=== PATIENT | female | born 1985 | race Caucasian/White ===

== ENCOUNTER 2016-05-07 15:47 | Emergency (ER) | payer OTHER ==
[~2016-05-07] VITALS: Ht 172.7 cm; Wt 89.0 kg
[~2016-05-07 15:47] MED LIST: IBUP600 PO; PREN0.01 PO
[2016-05-07 15:48] VITALS: BP 136/96; PULSE 77; RESP 17; TEMP 98.2; O2SAT 100
[2016-05-07] MEDS ORDERED: ACETAMINOPHEN 500 MG CPLT PO ONE (16:15)
[2016-05-07] MEDS ORDERED: predniSONE 20 MG TAB PO ONE (16:15)
[2016-05-07] MEDS ORDERED: KETOROLAC TROMETHAMINE 60 MG/2 ML (IM) VIAL IM ONE (16:15)
--- NOTE | 2016-05-07 17:34 | PD ---
HPI Chief Complaint: Back/ Neck Pain or Injury Time Seen by Provider: 16:30 Travel History International Travel<30 days: No Contact w/Intl Traveler<30days: No Traveled to known affect area: No History of Present Illness HPI 30-year-old female coming in with sudden onset right lower back pain. Patient states she was picking up her son when she had sudden onset pain and spasm which got progressively worse through the day today. Patient states her pain currently 8/10. It is worse with movement and trying to pain only. Patient similar episodes in the past. Patient denies pain down into the right buttock or leg. She denies urinary or bowel problems. It feels like a muscle spasm. Patient is currently breast-feeding her 8-month-old son. She denies any other symptoms. She has no known drug allergies. PFSH Past Medical History Diminished Hearing: No ?: Not LMP: MID-APRIL 2016 : 1 Para: 2 Social History Alcohol Use: No Tobacco Use: No (never) Substance Use: No Allergies-Medications (Allergen,Severity, Reaction): Coded Allergies: No Known Allergies (Verified , 05/07/16) Reported Meds & Prescriptions Reported Meds & Active Scripts Active Review of Systems Except as stated in HPI: all other systems reviewed are Neg General / Constitutional: No: Fever Eyes: No: Visual changes HENT: No: Headaches Cardiovascular: No: Chest Pain or Discomfort Respiratory: No: Shortness of Breath Gastrointestinal: No: Abdominal Pain Genitourinary: No: Dysuria Musculoskeletal: No: Pain Skin: No Rash Neurologic: No: Weakness Psychiatric: No: Depression Endocrine: No: Polydipsia Hematologic/Lymphatic: No: Easy Bruising Physical Exam Narrative GENERAL: Patient appears in moderate distress. SKIN: Warm and dry. Normal color. Normal turgor. HEAD: Atraumatic. Normocephalic. EYES: Pupils equal and round. No scleral icterus. No injection or drainage. ENT: No nasal bleeding or discharge. Mucous membranes pink and moist. NECK: Trachea midline. No JVD. Supple nontender. CARDIOVASCULAR: Regular rate and rhythm. No murmurs gallops or rubs. RESPIRATORY: No accessory muscle use. Clear to auscultation. Breath sounds equal bilaterally. GASTROINTESTINAL: Abdomen soft, non-tender, nondistended. Hepatic and splenic margins not palpable. No CVA tenderness. MUSCULOSKELETAL: Extremities without clubbing, cyanosis, or edema. No obvious deformities. Patient is soft tissue tenderness in the right lower thoracic and lumbar paraspinous region. There is palpable spasm in this time. There is no pain in the sciatic notch. Patient has negative radicular signs at this time. NEUROLOGICAL: Awake and alert. No obvious cranial nerve deficits. Motor grossly within normal limits. Five out of 5 muscle strength in the arms and legs strength is limited by pain only. Patient has normal plantar and dorsiflexion. Normal speech. PSYCHIATRIC: Appropriate mood and affect; insight and judgment normal. Data Data Last Documented VS Vital Signs Date Time Temp Pulse Resp B/P Pulse Ox O2 Delivery O2 Flow Rate FiO2 05/07/16 15:48 98.2 77 17 136/96 100 Orders Ketorolac Inj (Toradol Inj) (05/07/16 16:15) Prednisone (Deltasone) (05/07/16 16:15) Acetaminophen (Tylenol) (05/07/16 16:15) Ct Lumb Spine W/O Contrast (05/07/16 18:00) Complete Blood Count With Diff (05/07/16 18:00) Comprehensive Metabolic Panel (05/07/16 18:00) Lipase (05/07/16 18:00) Urinalysis - C+S If Indicated (05/07/16 18:00) Iv Access Insert/Monitor (05/07/16 18:00) Ecg Monitoring (05/07/16 18:00) Oximetry (05/07/16 18:00) Ondansetron Inj (Zofran Inj) (05/07/16 18:00) Sodium Chloride 0.9% Flush (Ns Flush) (05/07/16 18:00) Morphine Inj (Morphine Inj) (05/07/16 18:00) Ed Urine Pregnancytest Poc (05/07/16 18:00) MDM Medical Decision Making Medical Screen Exam Complete: Yes Emergency Medical Condition: Yes Differential Diagnosis Lumbar back strain. Muscle spasm. Sciatica. Narrative Course Patient is medically stable at time of exam. Radiographic imaging is not felt to be necessary based on the patient's history. Patient was given 60 mg prednisone by mouth as well as 60 mg Toradol IM. Muscle relaxants or narcotics were not given to the patient due to her breast- feeding status. Patient was kept in the emergency department for approximate hour with mild improvement. Patient is unable to ambulate due to her pain. Patient is discussed with Dr. Tello who recommends lab work, IV morphine, and CT scan of the lumbar spine to rule out acute cause of her pain. Labs ordered including CBC, CMP, lipase, urinalysis, urine . CT of the lumbar spine is ordered without IV contrast. Patient is given 5 mg IV morphine in 4 mg Zofran IV. Pending these labs and CT scan the patient may be admitted for is ration for intractable pain versus other etiology pending tests. Patient was moved to [place] [id number], and patient was discussed with Jim LOZANO. He will disposition the patient ending lab results. Condition: Stable Scott Alegria May 07, 2016 17:34
[2016-05-07] MEDS ORDERED: IBUP-232 PO (17:39)
[2016-05-07] MEDS ORDERED: BACT800T5 PO (17:39)
[2016-05-07] MEDS ORDERED: SODIUM CHLORIDE 0.9% FLUSH 5 ML FLUSH IVF PRN (18:00)
[2016-05-07] MEDS ORDERED: ONDANSETRON HCL 4 MG/2 ML VIAL IVP ONE (18:00)
[2016-05-07] MEDS ORDERED: MORPHINE SULFATE 8 MG/ML INJ IV PUSH ONE (18:00)
[2016-05-07 19:12] LABS: AUTOMATED NEUTROPHIL # 8.2 TH/MM3 (1.8-7.7); BASOPHIL % 0.3 % (0.0-2.0); EOSINOPHIL % 0.2 % (0.0-4.0); HEMATOCRIT 41.8 % (35.0-46.0); HEMO FLAGS DIFF FINAL; LYMPH % 10.6 % (9.0-44.0); MEAN CELL VOLUME 87.8 FL (80.0-100.0); MEAN CORPUSCULAR HEMOGLOBIN 31.2 PG (27.0-34.0); MEAN CORPUSCULAR HGB CONC 35.5 % (32.0-36.0); MONO % 1.9 % (0.0-8.0); PLATELET COUNT 213 TH/MM3 (150-450); RED BLOOD COUNT 4.76 MIL/MM3 (4.00-5.30); RED CELL DISTRIBUTION WIDTH 12.2 % (11.6-17.2); WHITE BLOOD COUNT 9.4 TH/MM3 (4.0-11.0)
[2016-05-07 19:28] LABS: BLOOD, URINE NEG (NEG); COMMENT (UR) CULT NOT INDICATED; CULTURE IF INDICATED CULT NOT INDICATED; GLUCOSE,URINE NEG (NEG); KETONE, URINE NEG (NEG); MUCUS URINE FEW /lpf (OCC); NITRITE,URINE NEG (NEG); SQUAMOUS EPITHELIAL CELL URINE 2 /hpf (0-5); URINE COLOR YELLOW (YELLW/STRAW)
--- NOTE | 2016-05-07 19:29 | PD ---
Physical Exam Time Seen by Provider: 19:24 Narrative GENERAL: Well-developed well-nourished female in no acute distress SKIN: Warm and dry. No rash, no flank or periumbilical ecchymosis HEAD: Atraumatic. Normocephalic. EYES: Pupils equal and round. No scleral icterus. No injection or drainage. ENT: No nasal bleeding or discharge. Mucous membranes pink and moist. NECK: Trachea midline. No JVD. CARDIOVASCULAR: Regular rate and rhythm. No murmur appreciated. RESPIRATORY: No accessory muscle use. Clear to auscultation. Breath sounds equal bilaterally. GASTROINTESTINAL: Abdomen soft, non-tender, nondistended. MUSCULOSKELETAL: No obvious deformities. There is no tenderness to palpation along the cervical thoracic or lumbar midline spine. No CVA tenderness. Patient has pain when attempting to sit up in bed from a lying down position. Full spontaneous use of the lower extremities. NEUROLOGICAL: Awake and alert. No obvious cranial nerve deficits. Motor grossly within normal limits. Normal speech. Data Data Last Documented VS Vital Signs Date Time Temp Pulse Resp B/P Pulse Ox O2 Delivery O2 Flow Rate FiO2 05/07/16 19:12 66 15 05/07/16 15:48 98.2 136/96 100 Orders Ketorolac Inj (Toradol Inj) (05/07/16 16:15) Prednisone (Deltasone) (05/07/16 16:15) Acetaminophen (Tylenol) (05/07/16 16:15) Ct Lumb Spine W/O Contrast (05/07/16 18:00) Complete Blood Count With Diff (05/07/16 18:00) Comprehensive Metabolic Panel (05/07/16 18:00) Lipase (05/07/16 18:00) Urinalysis - C+S If Indicated (05/07/16 18:00) Iv Access Insert/Monitor (05/07/16 18:00) Ecg Monitoring (05/07/16 18:00) Oximetry (05/07/16 18:00) Ondansetron Inj (Zofran Inj) (05/07/16 18:00) Sodium Chloride 0.9% Flush (Ns Flush) (05/07/16 18:00) Morphine Inj (Morphine Inj) (05/07/16 18:00) Ed Urine Pregnancytest Poc (05/07/16 18:00) Labs Laboratory Tests Test 2/4/17 18:55 White Blood Count 9.4 TH/MM3 Red Blood Count 4.76 MIL/MM3 Hemoglobin 14.8 GM/DL Hematocrit 41.8 % Mean Corpuscular Volume 87.8 FL Mean Corpuscular Hemoglobin 31.2 PG Mean Corpuscular Hemoglobin 35.5 % Concent Red Cell Distribution Width 12.2 % Platelet Count 213 TH/MM3 Mean Platelet Volume 7.3 FL Neutrophils (%) (Auto) 87.0 % Lymphocytes (%) (Auto) 10.6 % Monocytes (%) (Auto) 1.9 % Eosinophils (%) (Auto) 0.2 % Basophils (%) (Auto) 0.3 % Neutrophils # (Auto) 8.2 TH/MM3 Lymphocytes # (Auto) 1.0 TH/MM3 Monocytes # (Auto) 0.2 TH/MM3 Eosinophils # (Auto) 0.0 TH/MM3 Basophils # (Auto) 0.0 TH/MM3 CBC Comment DIFF FINAL Differential Comment Urine Color YELLOW Urine Turbidity CLEAR Urine pH 7.0 Urine Specific [place] 1.025 Urine Protein NEG mg/dL Urine Glucose (UA) NEG mg/dL Urine Ketones NEG mg/dL Urine Occult Blood NEG Urine Nitrite NEG Urine Bilirubin NEG Urine Urobilinogen LESS THAN 2.0 MG/DL Urine Leukocyte Esterase LARGE Urine RBC 2 /hpf Urine WBC 7 /hpf Urine Squamous Epithelial 2 /hpf Cells Urine Mucus FEW /lpf Microscopic Urinalysis Comment CULT NOT INDICATED Sodium Level 139 MEQ/L Potassium Level 3.8 MEQ/L Chloride Level 105 MEQ/L Carbon Dioxide Level 26.8 MEQ/L Anion Gap 7 MEQ/L Blood Urea Nitrogen 18 MG/DL Creatinine 0.91 MG/DL Estimat Glomerular Filtration 72 ML/MIN Rate Random Glucose 110 MG/DL Calcium Level 9.0 MG/DL Total Bilirubin 0.6 MG/DL Aspartate Amino Transf 14 U/L (AST/SGOT) Alanine Aminotransferase 20 U/L (ALT/SGPT) Alkaline Phosphatase 92 U/L Total Protein 8.5 GM/DL Albumin 4.6 GM/DL Lipase 175 U/L [facility] Medical Record Reviewed: Yes Supervised Visit with SHYAM: No Narrative Course 1924: I assumed care of this patient from the previous provider. Please see previous providers note for complete history of present illness. In summary this is a 30-year-old female who presents with lower back pain. She reports that she has an 8-month-old son who weighs 25 pounds. For the past month she has been having some lower back pain that primarily occurs when she is lifting her son. Today she lifted her son and the pain got worse which prompted evaluation. She describes it as a sharp pain in her lower back which is worse with movement. She denies any trauma. She denies any bowel or bladder incontinence, saddle anesthesia, radicular symptoms, flank pain, abdominal pain , nausea or vomiting dysuria, hematuria. She has been using [id number] ibuprofen for symptom relief prior to arrival. The patient's CT imaging and lab work revealed no acute abnormalities. Examination is consistent with a lumbar strain. The patient be discharged with a short course of Tylenol with codeine. She is urged to follow-up with her primary care physician in 4-5 days for recheck and return for any new or worsening symptoms. Diagnosis Primary Impression: Lumbar strain Qualified Code: S39.012A - Lumbar strain, initial encounter Departure Forms: Tests/Procedures, Work Release Enter return to work date: May 11, 2016 Additional Instruction: Medication as needed. Avoid heavy lifting or strenuous activity. Continue to perform activities of daily living as tolerated. Avoid bed rest. Follow-up with primary care physician in 4-5 days. Return for any new or worsening symptoms. Med/Other Pt SpecificInfo: Prescription(s) given Scripts Acetaminophen-Codeine (Tylenol-Codeine #3)300-30 mg Tab1 Tab PO Q4H PRN (PAIN) # 20 TAB Ref 0 Prov:Lynn Hughes MD 05/07/16 Disposition: 01 DISCHARGE HOME Condition: Stable Jim Munguia May 07, 2016 19:29
[2016-05-07 19:34] LABS: ANION GAP 7 MEQ/L (5-15); AST (GOT) 14 U/L (15-37); BICARBONATE 26.8 MEQ/L (21.0-32.0); BLOOD UREA NITROGEN 18 MG/DL (7-18); CHLORIDE 105 MEQ/L (98-107); GLOMERULAR FILTRATION RATE 72 ML/MIN (>89); POTASSIUM 3.8 MEQ/L (3.5-5.1); SODIUM (NA) 139 MEQ/L (136-145)
[2016-05-07 19:37] LABS: ALKALINE PHOSPHATASE 92 U/L (45-117); ALT (GPT) 20 U/L (10-53); TOTAL BILIRUBIN ADULT 0.6 MG/DL (0.2-1.0)
--- NOTE | 2016-05-07 20:35 | RADRPT ---
EXAM DATE/TIME: 05/07/2016 19:32 [facility] COMPARISON: No previous studies available for comparison. INDICATIONS : Lower back pain after lifting. RADIATION DOSE: 35.86 CTDIvol (mGy) MEDICAL HISTORY : None SURGICAL HISTORY : None. ENCOUNTER: Initial ACUITY: 1 day PAIN SCALE: 10/10 LOCATION: lower back TECHNIQUE: Volumetric scanning of the lumbar spine was performed. Multiplanar reconstructions in the sagittal, coronal and oblique axial planes were performed. Using automated exposure control and adjustment of the mA and/or kV according to patient size, radiation dose was kept as low as reasonably achievable t o obtain optimal diagnostic quality images. FINDINGS: VERTEBRAE: Normal vertebral body height. ALIGNMENT: No evidence of subluxation. T12-L1: The thecal sac has a normal diameter. No evidence of disc bulge or protrusion. The neural foramina are patent bilaterally. L1-L2: The thecal sac has a normal diameter. No evidence of disc bulge or protrusion. The neural foramina are patent bilaterally. L2-L3: The thecal sac has a normal diameter. No evidence of disc bulge or protrusion. The neural foramina are patent bilaterally. L3-L4: The thecal sac has a normal diameter. No evidence of disc bulge or protrusion. The neural foramina are patent bilaterally. L4-L5: The thecal sac has a normal diameter. No evidence of disc bulge or protrusion. The neural foramina are patent bilaterally. L5-S1: The thecal sac has a normal diameter. No evidence of disc bulge or protrusion. The neural foramina are patent bilaterally. CONCLUSION: Normal examination for a patient of this age. Transitional vertebra at the lumbosacral junction. Cl Rosa MD on May 07, 2016 at 20:30 Board Certified Radiologist. This report was verified electronically.
[2016-05-07] MEDS ORDERED: TYLETAB34 PO (20:55)
== END 2016-05-07 22:10 | disposition home or self-care (01) ==
LOC: NEPB 15:47 → NEPE 22:10
DX: S39.012A Strain of muscle, fascia and tendon of lower back, initial encounter (principal); X50.0XXA Overexertion from strenuous movement or load, initial encounter; Y93.89 Activity, other specified
CPT/HCPCS: 72131; 80053; 81001; 83690; 84703; 85025; 96372; 96374; 96375; 99284; J1885; J2270; J2405; J7512